=== PATIENT | female | born 1980 | race Caucasian/White ===

== ENCOUNTER 2019-01-08 12:17 | Inpatient (IN) ==
[2019-01-08 12:47] LABS: URINE SOURCE CLEAN CATCH
[2019-01-08 12:52] LABS: BILIRUBIN URINE NEGATIVE (NEGATIVE); BLOOD URINE MODERATE (NEGATIVE); COLOR STRAW; GLUCOSE URINE >1000 mg/dL (NEGATIVE); KETONE URINE >150 mg/dL (NEGATIVE); LEUKOCYTES URINE NEGATIVE (NEGATIVE); NITRITE URINE NEGATIVE (NEGATIVE); PH URINE 5.5; PROTEIN URINE NEGATIVE (NEGATIVE); SP GRAVITY URINE 1.023; TURBIDITY URINE CLEAR (CLEAR); UROBILINOGEN URINE NORMAL (NORMAL)
[2019-01-08 12:57] LABS: UR EPITHELIAL CELLS <10 /HPF (<10); URINE BACTERIA NEGATIVE /HPF; URINE RBC <10 /HPF (<10); URINE WBC <10 /HPF (<10)
[2019-01-08] MEDS ORDERED: NS 1,000 ML IV ONE ×3 (13:00→16:12)
[2019-01-08] MEDS ORDERED: ZOFRAN IM ONE (13:00)
[2019-01-08 13:02] LABS: BASO# 0.04 X1000 (0.0-0.2); BASO% 0.2 % (0.0-0.8); EOS# 0.01 X1000 (0.0-0.7); HEMATOCRIT 44.7 % (37.0-47.0); HEMOGLOBIN 15.2 g/dL (12.0-16.0); LYMPH# 0.87 X1000 (1.2-3.4); LYMPH% 3.7 % (20.5-51.1); MCH 28.9 PG (27-31); MONO# 0.91 X1000 (0.11-0.59); MONO% 3.9 % (1.7-9.3); MPV 11.3 FL (7.4-10.4); NEUT# 21.56 X1000 (1.4-6.5); NEUT% 92.2 % (42.2-75.2); PLT 378 X1000 (130-400); RBC 5.26 XMIL (4.2-5.4); RDW 13.3 % (11.5-14.5); WBC 23.39 X1000 (4.8-10.8)
[2019-01-08 13:20] LABS: ALB/GLOB RATIO 1.1; ALBUMIN 4.8 g/dL (3.5-5.0); CALCIUM 9.9 mg/dL (8.8-10.2); CREATININE 1.1 mg/dL (0.5-0.9); TOTAL BILIRUBIN 0.63 mg/dL (0.20-1.00); TOTAL PROTEIN 9.2 g/dL (6.3-8.3)
[2019-01-08] MEDS ORDERED: HUMULIN R IV ONE ×2 (14:12→14:45)
[2019-01-08] MEDS ORDERED: POTASSIUM CHLORIDE 20 MEQ in NS 1,000 ML IV ONE (14:16)
[2019-01-08 14:44] LABS: ALLEN TEST YES; BE -15.5 mmoll (-3.0-3.0); BLOOD TYPE ARTERIAL; HCO3-(ACT) 12.8 mmoll (20.0-26.0); METHB 1.2 % (0.0-1.5); O2(CT) 19.7 mL/dL (15.0-23.0); O2HB 96.8 % (95.0-99.0); PCO2(98.6) 23 mmHg (35-45); PO2(98.6) 112 mmHg (60-100); SAMPLE BLOOD; SAO2 99.5 % (95.0-100.0); THB 14.4 g/dL (11.5-17.4); pH(98.6) 7.24 (7.35-7.45)
[2019-01-08 14:45] LABS: MODALITY ROOM AIR
[2019-01-08] MEDS ORDERED: HUMULIN R 100 UNIT in NS 99 ML IV SCH (14:45)
[2019-01-08] MEDS ORDERED: D50W SYRINGE IV PRN (14:45)
[2019-01-08] MEDS: NS 1,000 ML IV ONE ×2 (14:57→15:42)
[2019-01-08] MEDS ORDERED: KLOR-CON PO ONE (15:55)
[2019-01-08] MEDS: LEVAQUIN 500 MG/D5W 500 MG/100 ML IVPB IV SCH (16:15)
--- NOTE | 2019-01-08 16:26 | Diag Imaging Result Doc PS360 ---
EXAM: CHEST-PORTABLE HISTORY: DKA, Leukocytosis TECHNIQUE: Portable chest single view COMPARISON: None. FINDINGS: The lungs are well expanded. The heart is not enlarged. The vessels are not distended. There are no infiltrates. No effusion identified. IMPRESSION: No pneumonia Electronically signed by Price Chaidez 01/08/2019 4:24 PM
[2019-01-08] MEDS ORDERED: MAGNESIUM SULFATE 2 GM/S.W.I. 2 GM/50 ML IVPB IV PRN ×2 (17:28→18:00)
[2019-01-08] MEDS ORDERED: POTASSIUM CHLORIDE 20% LIQUID PO PRN ×2 (17:30→18:00)
[2019-01-08] MEDS ORDERED: D5 1/2 NS 1,000 ML IV SCH (18:00)
[2019-01-08] MEDS ORDERED: POTASSIUM CHLORIDE 10% LIQUID PO PRN (18:00)
[2019-01-08 18:13] LABS: ALLEN TEST YES; BLOOD TYPE ARTERIAL; HCO3-(ACT) 15.6 mmoll (20.0-26.0); METHB 0.7 % (0.0-1.5); O2(CT) 15.8 mL/dL (15.0-23.0); O2HB 98.1 % (95.0-99.0); PO2(98.6) 203 mmHg (60-100); SAMPLE BLOOD; SAO2 100.6 % (95.0-100.0); THB 11.1 g/dL (11.5-17.4); pH(98.6) 7.46 (7.35-7.45)
[2019-01-08 18:15] LABS: MODALITY ROOM AIR; PCO2(98.6) 13 mmHg (35-45)
[2019-01-08] MEDS: NS 1,000 ML IV SCH (18:17)
--- NOTE | 2019-01-08 18:39 | HISTORY AND PHYSICAL ---
PRIMARY CARE PHYSICIAN: Dr. Reggie Khalil. CHIEF COMPLAINT: Intractable nausea/vomiting and hyperglycemia. HISTORY OF PRESENT ILLNESS: A 38-year-old white female with past medical history significant for hypertension, hypothyroidism, and type 1 diabetes presents for evaluation of above-mentioned symptoms. Pertinent history of present illness began 3 to 4 weeks ago. At that time, patient noted a malfunction in her insulin pump. With changing all support tubing and the site of injection, patient achieved improvement. Patient states she has done very well until Wednesday. At that time, her pump began alarming again. The patient initiated subcu insulin. She contacted [employer], the manufacture of her insulin pump. A pump was sent overnight. Yesterday, she initiated her new pump usage. Unfortunately, this one also malfunctioned. She attempted intermittent insulin injections, although without success. This morning, patient awoke with intractable nausea and vomiting. She has not had DKA in many years, although she anticipated this to be the case as her blood sugars had increased and she noted ketones in her urine. The patient contacted her heat transfer technician, Dr. Hill in [place]. He encouraged patient to increase her hydration. She attempted this, although unsuccessfully secondary to her nausea and vomiting. Because of her persistent symptoms, I was contacted and patient was instructed to come to the emergency department immediately. Upon arrival, patient was noted to have an elevated glucose as well as significant anion gap consistent with diabetic ketoacidosis. Patient will be admitted to the hospital for full evaluation and management of this condition. Of note, patient denies fevers, chills, dysuria, hematuria, pyuria, constipation, diarrhea, cough, congestion, shortness of breath, chest pains, and palpitations. PAST MEDICAL HISTORY: 1. Hypertension. 2. Hypothyroidism. 3. Type 1 diabetes. CURRENT MEDICATIONS: 1. Tirosint 175 mcg daily. 2. Insulin pump per Dr. Hill. ALLERGIES: Patient answered no known drug allergies. SOCIAL HISTORY: Patient denies tobacco, alcohol or illicit drug use. 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 FAMILY HISTORY: Patient's mother is living at age 61 with a history of hypertension. Patient's father is living at age 67 with diabetes, coronary artery disease, hypertension, and hyperlipidemia. REVIEW OF SYSTEMS: A 12 point review of systems was performed. Pertinent positives and negatives are noted in history present illness. PHYSICAL EXAMINATION: VITAL SIGNS: Temperature 97.4 degrees, heart rate 99, respirations 15, blood pressure 127/71. GENERAL: Well nourished, well developed, no acute distress. HEENT: Normocephalic, atraumatic. Pupils equal, round, react to light. Extraocular muscles intact. Sclerae anicteric. [place] conjunctivae. Oral and nasopharynx clear without exudate. NECK: Supple. No lymphadenopathy. No thyromegaly. No bruits auscultated. CARDIOVASCULAR: Regular rate and rhythm. No significant murmurs, rubs, or gallops. PULMONARY: Clear to auscultation bilaterally. ABDOMEN: Soft, nontender, nondistended. Positive bowel sounds. EXTREMITIES: Moves all extremities well. No significant clubbing, cyanosis, or edema. NEUROLOGIC: Cranial nerves 2-12 grossly intact. Motor and sensory grossly intact. PSYCHOLOGIC: Appropriate. LABORATORY DATA: White blood cell count 23.39, hemoglobin 15.2, hematocrit 44.7, platelet count 378,000. Sodium 135, potassium 5.0, chloride 96, bicarb 11, BUN 23, creatinine 1.1, glucose 560, calcium 9.9, total bilirubin 0.63, total protein 9.2, albumin 4.8, alkaline phosphatase 128, AST 15, ALT 12, amylase 27, lipase 6. Urinalysis revealed glucose greater than 1000, moderate blood, moderate acetone. ABG demonstrated pH of 7.24, pCO2 23, PO2 112, bicarbonate 12.8. ASSESSMENT AND PLAN: A 34-year-old white female with past medical history as noted presents for evaluation of intractable nausea/vomiting and hyperglycemia. Laboratory data is consistent with diabetic ketoacidosis. The likely cause is the fact the patient's insulin pump was malfunctioning. In the setting of leukocytosis, infection will also need to be considered. The patient will be evaluated and managed as described below. 1. Admit to ICU. 2. Diabetic ketoacidosis-patient has been given 3 L of normal saline in the emergency department. We will give 1 additional liter then initiate DKA protocol. Blood sugars are already improving while in the emergency department. As the potential cause is likely pump malfunction, patient's pump has been discontinued for now. We will, however, investigate for the possibility of additional causes including infectious etiology. We will check a chest x- ray as well as blood cultures. We will follow patient's clinical course closely. 3. Intractable nausea, vomiting-this likely is a consequence of diabetic ketoacidosis. We will remain that this could be a precipitating cause. We will treat patient supportively. We will treat diabetic ketoacidosis as described above. 4. Electrolyte abnormalities-this likely is a consequence of the patient's diabetic ketoacidosis. We will replace per protocol. 5. Leukocytosis-question is raised whether this is secondary to an underlying infection or this is possibly secondary to demargination. We will check blood cultures and a chest x-ray. Urinalysis did not demonstrate significant signs of infection. We will empirically place patient on levofloxacin for now. We will plan to discontinue this should no evidence of infection present. 6. Fluid, electrolytes, nutrition. We will monitor electrolytes and replace per DKA protocol. We will aggressively manage hydration with DKA protocol, NPO for now. 7. Prophylaxis. Patient will be placed on SCDs. cc: Kevin Hagan MD
--- NOTE | 2019-01-08 19:51 | PROVIDER DOCUMENTATION ---
This chart was entered by Paz Haywood Scribe, acting as scribe for Mj Delgado MD. HPI-General Adult - General Chief Complaint: High Blood Sugar Stated Complaint: DKA??? Time Seen by Provider: 01/08/19 12:34 Source: patient Allergies/Adverse Reactions: Patient Allergies Allergy/AdvReac Type Severity Reaction Status Date / Time No Known Allergies Allergy Verified 01/08/19 13:38 Home Medications: Home Medication List Medication Instructions Recorded Confirmed Last Taken Type Insulin Aspart [Novolog] 100 unit SQ DAILY PRN PRN 09/01/15 09/01/15 Unknown History Levothyroxine Sodium [Tirosint] 1 tab PO DAILY 01/08/19 01/08/19 01/08/19 History - History of Present Illness -Gen Adult Nature of Presenting Problems: 38yof with hx of diabetes type 1 c/o insulin pump malfunction, nausea, vomiting since this morning. She reports she had five episodes of nausea and vomiting this morning. She reports she smelled "ketones" this morning. She reports difficulty taking in solids and fluids this morning. She denies fever, chills, cp, and sob. The patient's mother is at bedside. Location of Pain/Injury: reports: none Pain Radiation: reports: no radiation Quality of Pain: reports: none Severity: reports: moderate Onset/Duration: reports: this morning Timing: reports: still present, intermittent, constant Context/Activities at Onset: reports: other (insulin pump malfunction) Modifying Factors: improves with: nothing Associated Symptoms: reports: nausea, vomiting. denies: chest pain, shortness of breath Similar Symptoms Previously?: No Recently seen or treated by another doctor?: No Review of Systems - Adult - REVIEW OF SYSTEMS - ADULT Constitutional: reports: other (insulin pump malfunction). denies: chills, fever Eyes: denies: discharge, dry eyes Ears, Nose, Mouth & Throat: denies: ear discharge, ear pain Cardiovascular: denies: chest pain, palpitations Respiratory: denies: cough, shortness of breath Gastrointestinal: reports: nausea, vomiting Genitourinary: denies: dysuria, hematuria Musculoskeletal: denies: back pain, muscle aches, muscle weakness Integumentary: reports: no symptoms reported Neurological: denies: dizziness/vertigo, headache/migraines Psychiatric: reports: no symptoms reported Endocrine: reports: no symptoms reported Hematologic/Lymphatic: reports: no symptoms reported Allergic/Immunologic: reports: no symptoms reported All Other Systems: Reviewed and Negative Past History - Adult - PAST MEDICAL HISTORY-ADULT Review of Records: reports: Old Records Reviewed, Nursing Assessment Review, Medications Reviewed Cardiovascular: reports: HTN Endocrine/Immune: reports: Diabetes - PRIOR SURGERIES/PROCEDURES Surgical/Procedure History: reports: - IMMUNIZATION STATUS Childhood Immunizations: See Nurse Assessment Flu Vaccine: See Nurse Assessment - FAMILY HISTORY Family History: reviewed, not pertinent - SOCIAL HISTORY Smoking: non-smoker Substance Use: denies Living Situation: family Physical Exam-General - PHYSICAL EXAM-ADULT Initial Vital Signs Reviewed: Yes - CONSTITUTIONAL General Appearance: alert, no apparent distress - EYES Eyes: PERRL/EOMI, pink conjunctivae - HEAD, EARS, NOSE, MOUTH & THROAT HENMT: other (dry mucous membranes). negative: pharyngeal erythema - NECK Neck: non-tender, supple - RESPIRATORY Respiratory: chest non-tender, lungs clear, normal breath sounds, no pleuratic chest pain, no respiratory distress, no accessory muscle use. negative: crackles, wheezing - CARDIOVASCULAR Cardiovascular: regular rate, rhythm, no murmur, tachycardia - GASTROINTESTINAL (ABDOMEN) Abdominal Exam: non tender, soft. negative: distended, guarding - MUSCULOSKELETAL Extremity: normal range of motion, non-tender, normal inspection, no pedal edema - SKIN Integumentary: normal color, warm/dry. negative: cyanosis - NEUROLOGIC Neurologic: grossly normal, no motor/sensory deficits - PSYCHIATRIC Psych/Mental Status: normal mood/affect, normal thought content, normal thought process, oriented x 3 Progress - PLAN OF CARE/RESULTS Progress/Plan/Lab Results: Vital Signs - 8 hr 01/08/19 12:21 Temperature 97.4 F L Pulse Rate 122 H Respiratory Rate 20 Blood Pressure 109/73 O2 Sat by Pulse Oximetry 100 Laboratory Results - last 24 hr 01/08/19 01/08/19 01/08/19 12:28 12:28 12:28 WBC 23.39 H RBC 5.26 Hgb 15.2 Hct 44.7 MCV 85.0 MCH 28.9 MCHC 34.0 RDW Std Deviation 13.3 Plt Count 378 MPV 11.3 H Neut % (Auto) 92.2 H Lymph % (Auto) 3.7 L Mccone % (Auto) 3.9 Eos % (Auto) 0.0 Baso % (Auto) 0.2 Neut # (Auto) 21.56 H Lymph # (Auto) 0.87 L Mccone # (Auto) 0.91 H Eos # (Auto) 0.01 Baso # (Auto) 0.04 Urine Source CLEAN CATCH Urine Color STRAW Urine Turbidity CLEAR Urine pH 5.5 Ur Specific [place] 1.023 Urine Protein NEGATIVE Ur Glucose (Stick) >1000 A Ur Ketones (Stick) >150 Urine Blood MODERATE A Urine Nitrite NEGATIVE Urine Bilirubin NEGATIVE Urobilinogen Dipstick NORMAL Urine Leukocytes NEGATIVE Urine WBC (Auto) <10 Urine RBC (Auto) <10 U Epithel Cells (Auto) <10 Urine Bacteria (Auto) NEGATIVE Urine Test NEGATIVE Acetone Level 01/08/19 12:28 WBC RBC Hgb Hct MCV MCH MCHC RDW Std Deviation Plt Count MPV Neut % (Auto) Lymph % (Auto) Mccone % (Auto) Eos % (Auto) Baso % (Auto) Neut # (Auto) Lymph # (Auto) Mccone # (Auto) Eos # (Auto) Baso # (Auto) Urine Source Urine Color Urine Turbidity Urine pH Ur Specific [place] Urine Protein Ur Glucose (Stick) Ur Ketones (Stick) Urine Blood Urine Nitrite Urine Bilirubin Urobilinogen Dipstick Urine Leukocytes Urine WBC (Auto) Urine RBC (Auto) U Epithel Cells (Auto) Urine Bacteria (Auto) Urine Test Acetone Level MODERATE A Orders Category Date Time Status Saline Loc DIRECTED Care 01/08/19 12:28 Active NPO Diet 01/08/19 12:28 Active AMYLASE [CHEM] Stat Lab 01/08/19 12:28 Received CBC WITH ELECTRONIC DIFF [HEME] Stat Lab 01/08/19 12:28 Completed COMPREHENSIVE METABOLIC PANEL [CHEM] Stat Lab 01/08/19 12:28 Received Ketone [ACETONE SERUM] [CHEM] Stat Lab 01/08/19 12:28 Completed LIPASE [CHEM] Stat Lab 01/08/19 12:28 Received TEST-URINE [PREG] Stat Lab 01/08/19 12:28 Completed URINALYSIS W/POSS RFLX CULT [URINALYSIS] Stat Lab 01/08/19 12:28 Completed 0.9% Sodium Chloride Inj [Ns] 1,000 ml Med 01/08/19 13:00 Active IV 999 mls/hr Ondansetron [Zofran] Med 01/08/19 13:00 Discontinued 4 mg IM NOW ONE Result Diagrams: 01/08/19 12:28 01/08/19 12:28 - CONSULTS/PCP/HOSPITALIST Notification #1 *Consult/PCP/Hospitalist*: Dr. Hagan Time Discussed: 14:44 Consult Disposition: Admit Departure - Departure Date of Disposition Decision: 01/08/19 Time of Disposition Decision: 15:48 DIAGNOSIS: DKA (diabetic ketoacidoses) Disposition: ADMITTED INPATIENT 09 Certified Medical Emergency: Emergent Condition: Stable - Critical Care Note This patient required my direct & personal management of CC.: Yes Total Time (mins): 40 Critical Care Statement: This patient required my direct personal management to treat or rule out processes, the absence of which, could potentiallly result in sudden, clinically significant life or limb threatening deterioration. Attestation - Physician/ DEMARIO Attestation Patient care was provided by Advanced Practice Provider:: No The physician spent face to face time with patient:: Yes Advanced Practice Provider documentation review:: Supervising physician onsite and consulted in the evaluation and care of this patient. The physician did have a face to face encounter with the patient. This chart was documented by the indicated scribe, (Paz Haywood, [email or web address]) and accurately reflects the services I performed and decisions made by me, Mj Delgado MD, as attested by the provider's signature.
[2019-01-08 20:22] LABS: AGAP 14; BUN 17 mg/dL (8-22); CALCIUM 8.2 mg/dL (8.8-10.2); CHLORIDE 112 mmol/L (98-107); COSMO 286; CREATININE 0.7 mg/dL (0.5-0.9); ESTIMATED GFR > 60; GLUCOSE 153 mg/dL (70-104); POTASSIUM 4.2 mmol/L (3.5-5.1); SODIUM 141 mmol/L (136-145); TCO2 15 mmol/L (25-35)
[2019-01-08 20:31] LABS: MAGNESIUM 1.7 mg/dL (1.5-2.7); PHOSPHORUS 2.7 mg/dL (2.7-4.5)
[2019-01-08 22:30] LABS: ALLEN TEST YES; BE -11.2 mmoll (-3.0-3.0); BLOOD TYPE ARTERIAL; HCO3-(ACT) 16.2 mmoll (20.0-26.0); METHB 1.3 % (0.0-1.5); MODALITY ROOM AIR; O2(CT) 15.7 mL/dL (15.0-23.0); O2HB 96.4 % (95.0-99.0); PCO2(98.6) 27 mmHg (35-45); PO2(98.6) 99 mmHg (60-100); SAMPLE BLOOD; SAO2 99.5 % (95.0-100.0); THB 11.5 g/dL (11.5-17.4); pH(98.6) 7.31 (7.35-7.45)
[2019-01-08 23:32] LABS: ESTIMATED GFR > 60
[2019-01-08 23:33] LABS: AGAP 13; BUN 14 mg/dL (8-22); CALCIUM 7.8 mg/dL (8.8-10.2); CHLORIDE 113 mmol/L (98-107); COSMO 281; CREATININE 0.7 mg/dL (0.5-0.9); GLUCOSE 144 mg/dL (70-104); POTASSIUM 4.2 mmol/L (3.5-5.1); SODIUM 139 mmol/L (136-145); TCO2 13 mmol/L (25-35)
[2019-01-08 23:42] LABS: MAGNESIUM 2.3 mg/dL (1.5-2.7)
[2019-01-09] MEDS: POTASSIUM CHLORIDE 10% LIQUID PO PRN ×4 (00:07→13:35)
[2019-01-09 04:12] LABS: MAGNESIUM 2.3 mg/dL (1.5-2.7); PHOSPHORUS 2.3 mg/dL (2.7-4.5)
[2019-01-09 04:24] LABS: AGAP 9; BUN 12 mg/dL (8-22); CHLORIDE 112 mmol/L (98-107); COSMO 275; CREATININE 0.7 mg/dL (0.5-0.9); GLUCOSE 192 mg/dL (70-104); POTASSIUM 4.5 mmol/L (3.5-5.1); SODIUM 135 mmol/L (136-145); TCO2 14 mmol/L (25-35)
[2019-01-09 04:25] LABS: CALCIUM 8.4 mg/dL (8.8-10.2)
[2019-01-09 04:46] LABS: ALLEN TEST YES; BE -9.8 mmoll (-3.0-3.0); BLOOD TYPE ARTERIAL; HCO3-(ACT) 17.3 mmoll (20.0-26.0); METHB 1.3 % (0.0-1.5); O2(CT) 15.6 mL/dL (15.0-23.0); O2HB 96.9 % (95.0-99.0); PCO2(98.6) 25 mmHg (35-45); PO2(98.6) 135 mmHg (60-100); SAMPLE BLOOD; SAO2 99.7 % (95.0-100.0); THB 11.3 g/dL (11.5-17.4); pH(98.6) 7.36 (7.35-7.45)
[2019-01-09 04:47] LABS: MODALITY ROOM AIR
[2019-01-09] MEDS: NS 1,000 ML IV SCH ×3 (05:03→08:23)
[2019-01-09] MEDS: SYNTHROID PO SCH (06:01)
[2019-01-09 09:26] LABS: AGAP 8; BUN 9 mg/dL (8-22); CHLORIDE 111 mmol/L (98-107); COSMO 275; CREATININE 0.7 mg/dL (0.5-0.9); ESTIMATED GFR > 60; GLUCOSE 149 mg/dL (70-104); POTASSIUM 4.5 mmol/L (3.5-5.1); SODIUM 137 mmol/L (136-145); TCO2 18 mmol/L (25-35)
[2019-01-09 10:33] LABS: ALLEN TEST YES; BE -6.7 mmoll (-3.0-3.0); BLOOD TYPE ARTERIAL; HCO3-(ACT) 19.7 mmoll (20.0-26.0); METHB 1.2 % (0.0-1.5); O2(CT) 16.7 mL/dL (15.0-23.0); O2HB 96.6 % (95.0-99.0); PCO2(98.6) 29 mmHg (35-45); PO2(98.6) 101 mmHg (60-100); SAMPLE BLOOD; SAO2 99.6 % (95.0-100.0); THB 12.2 g/dL (11.5-17.4); pH(98.6) 7.38 (7.35-7.45)
[2019-01-09 10:37] LABS: MODALITY ROOM AIR
[2019-01-09 12:01] LABS: MAGNESIUM 1.9 mg/dL (1.5-2.7); PHOSPHORUS 1.6 mg/dL (2.7-4.5)
[2019-01-09 12:03] LABS: AGAP 7; BUN 7 mg/dL (8-22); CALCIUM 8.4 mg/dL (8.8-10.2); CHLORIDE 112 mmol/L (98-107); COSMO 272; CREATININE 0.6 mg/dL (0.5-0.9); ESTIMATED GFR > 60; GLUCOSE 139 mg/dL (70-104); POTASSIUM 4.4 mmol/L (3.5-5.1); SODIUM 136 mmol/L (136-145); TCO2 17 mmol/L (25-35)
--- NOTE | 2019-01-09 13:30 | PROGRESS NOTE ---
DATE: 01/09/2019 SUBJECTIVE: The patient states that she is feeling better. She has had no fever. She had no further nausea and vomiting. I spoke at length with Dr. Kevin Hagan about her presenting symptomatology and reviewed all chart notes. OBJECTIVE: Vital Signs: 98.4, 80, 18, 114/55, 100% saturated on room air. General: The patient is alert, oriented, conversive and appropriate. She is in a very good mood. Lungs: Clear. Cardiovascular: Regular. LABORATORY: A CBC was not ordered today. ABG still showed some acidosis last night. The new ABG drawn this morning was 7.38, pCO2 29, PO2 of 101, 99.6% saturated. Serum electrolytes show a slightly elevated chloride with a low bicarb of 17, which is improved from 13 yesterday. The patient's glucose is hovering around 140 on her D5 half-normal drip. I ordered serum ketones but none have shown up time of this dictation. ASSESSMENT AND PLAN: The patient still is mild to moderately ketotic, although she has recovered greatly and feels improved. I am still going to keep her on minimal p.o. intake and run the D5 with insulin drip per protocol probably till this afternoon or tomorrow. I am not sure that we decided what we are going to do about her malfunctioning pump or what we will be able to put her on to hold things steady. cc: Reggie Khalil MD
[2019-01-09] MEDS: LEVAQUIN 500 MG/D5W 500 MG/100 ML IVPB IV SCH (15:44)
[2019-01-10 06:04] LABS: AGAP 9; BUN 8 mg/dL (8-22); CALCIUM 8.7 mg/dL (8.8-10.2); CHLORIDE 107 mmol/L (98-107); COSMO 276; CREATININE 0.6 mg/dL (0.5-0.9); ESTIMATED GFR > 60; GLUCOSE 165 mg/dL (70-104); MAGNESIUM 1.7 mg/dL (1.5-2.7); PHOSPHORUS 3.4 mg/dL (2.7-4.5); POTASSIUM 4.1 mmol/L (3.5-5.1); SODIUM 137 mmol/L (136-145); TCO2 21 mmol/L (25-35)
[2019-01-10] MEDS: SYNTHROID PO SCH (06:10)
[2019-01-10 06:13] LABS: ACETONE SERUM NEGATIVE (NEGATIVE)
[2019-01-10 06:39] LABS: BASO# 0.03 X1000 (0.0-0.2); BASO% 0.4 % (0.0-0.8); EOS# 0.16 X1000 (0.0-0.7); EOS% 1.9 % (0.0-10.0); HEMATOCRIT 35.9 % (37.0-47.0); HEMOGLOBIN 12.1 g/dL (12.0-16.0); LYMPH# 1.98 X1000 (1.2-3.4); LYMPH% 23.9 % (20.5-51.1); MCH 28.9 PG (27-31); MCHC 33.7 g/dL (33-37); MCV 85.7 FL (81-99); MONO# 0.75 X1000 (0.11-0.59); MPV 10.4 FL (7.4-10.4); NEUT# 5.37 X1000 (1.4-6.5); NEUT% 64.8 % (42.2-75.2); PLT 229 X1000 (130-400); RBC 4.19 XMIL (4.2-5.4); RDW 13.6 % (11.5-14.5); WBC 8.29 X1000 (4.8-10.8)
[2019-01-10 08:06] VITALS: BP 118/63
--- NOTE | 2019-01-10 22:04 | DISCHARGE SUMMARY ---
ADMISSION DATE: 01/08/2019 DISCHARGE DATE: 01/10/2019 DISCHARGE DIAGNOSES: 1. Diabetic ketoacidosis. 2. Type 1 diabetes mellitus. CONSULTATIONS: None. HOSPITAL COURSE: This 38-year-old, white female had excessive nausea and vomiting, which was intractable at home and was admitted with an anion gap acidosis with moderate levels of acetone in her blood. She also had an elevated white cell count. The patient was brought into the hospital and started on a DKA protocol in the ICU, including copious amounts of normal saline and then was switched over to D5 half-normal saline with an insulin drip. Over the course of her hospitalization, we gradually corrected her acidosis and she had no further ketones on the 2nd day. Her insulin drip was switched off and she was fed. One of the precipitating factors for her DKA was a malfunction of her insulin pump. She received a new one and after we terminated her insulin drip I asked her to place her pump as previously and to eat and drink normally. She did well. Her blood sugar was controlled and laboratories on the day of discharge had all but returned to normal. The only abnormality being a carbon dioxide level of 21, but she still only had an anion gap of 9. She was discharged home with a prescription for nausea medicine and a prescription for some NPH in case her pump malfunctions. She is to follow up with her disability advocate, Dr. Hill as soon as practical. I told the patient she should not return to work for an additional day so that she can make sure that her pump is functioning and she is feeling well enough. cc: Reggie Khalil MD
== END 2019-01-10 09:59 | disposition home or self-care (01) | DRG 919 ==
LOC: ED 12:17 → EDIPHOLD 12:18 → ICU 18:25 → 3S 01-09 17:12
PROVIDERS: ADMIT Internal Medicine; ATTEND Internal Medicine
CPT/HCPCS: 71010; 71045; 80048; 80053; 81001; 81025; 82009; 82150; 82805; 82948; 83690; 83735; 84100; 84443; 85025; 87040; 99285; A9270; J1956; J2405; J3475; J3480; J7030; XXXXX